=== PATIENT | female | born 1965 | race Caucasian/White ===

== ENCOUNTER 2018-01-03 18:12 | Inpatient (IN) | payer OTHER ==
[~2018-01-03] VITALS: Ht 154.9 cm; Wt 65.1 kg
[2018-01-03] MEDS ORDERED: MORPHINE SULFATE 4 MG/1 ML DISP.SYRIN ONE ×3 (18:30→20:58)
[2018-01-03] MEDS ORDERED: MORPHINE SULFATE 2 MG/1 ML DISP.SYRIN IM ONE (18:30)
[2018-01-03] MEDS ORDERED: ROCURONIUM BROMIDE 50 MG/5 ML VIAL IV ONE (19:00)
[2018-01-03] MEDS ORDERED: ONDANSETRON ODT 4 MG TAB.RAPDIS ONE (19:13)
[2018-01-03] MEDS ORDERED: ONDANSETRON ODT 4 MG TAB.RAPDIS SL ONE (19:15)
[2018-01-03] MEDS ORDERED: MORPHINE SULFATE 4 MG/1 ML DISP.SYRIN IM ONE ×2 (19:15→20:30)
[2018-01-03 20:28] LABS: BASOPHILS % (AUTO) 0.5 % (0.0-2.0); EOSINOPHILS # (AUTO) 0.2 K/uL (0.0-0.7); EOSINOPHILS % (AUTO) 2.5 % (0.0-7.0); HEMATOCRIT 35.7 % (31.2-41.9); HEMOGLOBIN 11.6 g/dL (10.9-14.3); LYMPHOCYTES # (AUTO) 1.7 K/uL (20.0-40.0); LYMPHOCYTES % (AUTO) 17.5 % (20.5-51.5); MEAN CORPUSCULAR HEMOGLOBIN 27.4 uug (24.7-32.8); MEAN CORPUSCULAR HGB CONC 33 g/dL (32.3-35.6); MEAN CORPUSCULAR VOLUME 84.1 fL (75.5-95.3); MONOCYTES # (AUTO) 0.8 K/uL (2.0-10.0); MONOCYTES % (AUTO) 8.3 % (0.0-11.0); NEUTROPHILS # (AUTO) 7.1 K/uL (1.8-8.9); NEUTROPHILS % (AUTO) 71.2 % (38.5-71.5); PLATELET COUNT (AUTO) 270 K/uL (179-408); RED BLOOD CELL COUNT(AUTO) 4.25 MIL/uL (3.63-4.92); WHITE BLOOD COUNT (AUTO) 9.9 K/uL (3.8-11.8)
[2018-01-03 20:36] LABS: CREATININE 0.7 mg/dL (0.6-1.3); POTASSIUM 4.6 mmol/L (3.5-5.1)
[2018-01-03 20:42] LABS: BILIRUBIN,DIRECT 0.1 mg/dL (0.0-0.2); BILIRUBIN,TOTAL 0.3 mg/dL (0.2-1.0); TOTAL PROTEIN, SERUM 6.7 g/dL (6.4-8.2)
[2018-01-03] MEDS ORDERED: SWABABLE VALVE TRANSFER SET EA MC ONE (20:57)
[2018-01-03] MEDS ORDERED: IV NORMAL SALINE 100 ML ONE (20:57)
[2018-01-03] MEDS ORDERED: NORMAL SALINE FLUSH 10 ML DISP.SYRIN ONE (20:57)
[2018-01-03] MEDS ORDERED: IOHEXOL 300MG/ML 100 ML INFUS..BTL ONE (20:57)
[2018-01-03] MEDS ORDERED: ONDANSETRON 4 MG/2 ML VIAL ONE ×2 (21:03→23:01)
[2018-01-04] MEDS ORDERED: ACETAMINOPHEN 325 MG TABLET PO PRN
[2018-01-04] MEDS ORDERED: Z GUARD REMEDY PASTE 57 GM TUBE TOP PRN
[2018-01-04] MEDS ORDERED: MAGNESIUM HYDROXIDE 30 ML LIQUID UDC PO PRN
[2018-01-04] MEDS ORDERED: DIATR MEGLU/DIATRIZOATE SODIUM 120 ML BOTTLE ONE (00:11)
[2018-01-04] MEDS ORDERED: MORPHINE SULFATE 4 MG/1 ML DISP.SYRIN IV ONE (00:15)
[2018-01-04] MEDS ORDERED: ONDANSETRON 4 MG/2 ML VIAL IV ONE (00:15)
[2018-01-04] MEDS ORDERED: MORPHINE SULFATE 4 MG/1 ML DISP.SYRIN ONE (00:24)
[2018-01-04] MEDS ORDERED: MISCELLANEOUS MED XX PRN (00:45)
[2018-01-04] MEDS ORDERED: ONDANSETRON 4 MG/2 ML VIAL IV PRN ×2 (00:45)
[2018-01-04 01:03] VITALS: BP 147/98
[2018-01-04] MEDS: MORPHINE SULFATE 2 MG/1 ML DISP.SYRIN IV PRN ×6 (05:12→23:49)
[2018-01-04 05:18] VITALS: BP 124/79
[2018-01-04 08:14] LABS: BASOPHILS % (AUTO) 0.4 % (0.0-2.0); EOSINOPHILS % (AUTO) 0.6 % (0.0-7.0); HEMATOCRIT 34.1 % (31.2-41.9); HEMOGLOBIN 11.4 g/dL (10.9-14.3); LYMPHOCYTES # (AUTO) 1.2 K/uL (20.0-40.0); LYMPHOCYTES % (AUTO) 17.4 % (20.5-51.5); MEAN CORPUSCULAR HEMOGLOBIN 28.1 uug (24.7-32.8); MEAN CORPUSCULAR HGB CONC 34 g/dL (32.3-35.6); MONOCYTES # (AUTO) 0.5 K/uL (2.0-10.0); MONOCYTES % (AUTO) 7.7 % (0.0-11.0); NEUTROPHILS % (AUTO) 73.9 % (38.5-71.5); PLATELET COUNT (AUTO) 270 K/uL (179-408); RED BLOOD CELL COUNT(AUTO) 4.06 MIL/uL (3.63-4.92); WHITE BLOOD COUNT (AUTO) 6.8 K/uL (3.8-11.8)
[2018-01-04 08:25] LABS: CREATININE 0.6 mg/dL (0.6-1.3); MAGNESIUM 1.9 mg/dL (1.8-2.4); PHOSPHOROUS 4.6 mg/dL (2.5-4.9); POTASSIUM 4.1 mmol/L (3.5-5.1)
[2018-01-04] MEDS ORDERED: PANT40TA2 PO (09:16)
[2018-01-04] MEDS ORDERED: ERGO500014 PO (09:18)
[2018-01-04] MEDS ORDERED: [UNRECOGNIZED DRUG - OTHER] TOP (09:18)
[2018-01-04 11:30] VITALS: BP 124/80
[2018-01-04] MEDS: PANTOPRAZOLE SODIUM 40 MG TABLET.DR PO SCH ×2 (12:00→17:11)
[2018-01-04] MEDS ORDERED: ALPR0.255 PO (12:41)
[2018-01-04] MEDS ORDERED: CETI10CA PO (12:42)
[2018-01-04] MEDS: ONDANSETRON 4 MG/2 ML VIAL IV PRN ×3 (13:12→21:32)
[2018-01-04 15:47] VITALS: BP 139/90
[2018-01-04 19:33] VITALS: BP 159/86
[2018-01-04] MEDS: HYDROCODONE/APAP 5-325MG TABLET PO PRN (20:14)
[2018-01-04 21:00] VITALS: BP 135/91
[2018-01-05] MEDS ORDERED: ALPRAZOLAM 0.25 MG TABLET PO ONE (01:15)
[2018-01-05 03:40] VITALS: BP 146/83
[2018-01-05] MEDS: MORPHINE SULFATE 2 MG/1 ML DISP.SYRIN IV PRN ×3 (03:52→09:25)
[2018-01-05] MEDS: ONDANSETRON 4 MG/2 ML VIAL IV PRN ×3 (05:42→13:15)
[2018-01-05] MEDS: PANTOPRAZOLE SODIUM 40 MG TABLET.DR PO SCH (06:05)
[2018-01-05 06:42] LABS: BASOPHILS % (AUTO) 0.9 % (0.0-2.0); EOSINOPHILS # (AUTO) 0.5 K/uL (0.0-0.7); EOSINOPHILS % (AUTO) 8.9 % (0.0-7.0); HEMATOCRIT 35.4 % (31.2-41.9); HEMOGLOBIN 11.6 g/dL (10.9-14.3); LYMPHOCYTES # (AUTO) 1.5 K/uL (20.0-40.0); LYMPHOCYTES % (AUTO) 26.7 % (20.5-51.5); MEAN CORPUSCULAR HEMOGLOBIN 27.6 uug (24.7-32.8); MEAN CORPUSCULAR HGB CONC 33 g/dL (32.3-35.6); MEAN CORPUSCULAR VOLUME 83.8 fL (75.5-95.3); MONOCYTES # (AUTO) 0.7 K/uL (2.0-10.0); MONOCYTES % (AUTO) 12.9 % (0.0-11.0); NEUTROPHILS # (AUTO) 2.8 K/uL (1.8-8.9); NEUTROPHILS % (AUTO) 50.6 % (38.5-71.5); PLATELET COUNT (AUTO) 270 K/uL (179-408); RED BLOOD CELL COUNT(AUTO) 4.22 MIL/uL (3.63-4.92); WHITE BLOOD COUNT (AUTO) 5.6 K/uL (3.8-11.8)
[2018-01-05 06:52] LABS: CREATININE 0.6 mg/dL (0.6-1.3); MAGNESIUM 1.9 mg/dL (1.8-2.4); PHOSPHOROUS 3.7 mg/dL (2.5-4.9); POTASSIUM 3.6 mmol/L (3.5-5.1)
[2018-01-05] MEDS ORDERED: ERGOCALCIFEROL 50,000 UNIT CAPSULE PO SCH (09:00)
[2018-01-05] MEDS ORDERED: BISACODYL 10 MG SUPP.RECT RC PRN (11:15)
[2018-01-05] MEDS ORDERED: MORPHINE SULFATE 2 MG/1 ML DISP.SYRIN IV PRN (11:15)
[2018-01-05] MEDS ORDERED: BISACODYL 10 MG SUPP.RECT RC ONE (11:15)
[2018-01-05] MEDS ORDERED: DOCUSATE SODIUM 100 MG/10 ML LIQUID UDC PO SCH (11:15)
[2018-01-05] MEDS ORDERED: MORPHINE SULFATE 4 MG/1 ML DISP.SYRIN IV PRN (11:45)
[2018-01-05 11:52] VITALS: BP 154/91
[2018-01-05] MEDS ORDERED: IV D5W-0.45% NS +20 KCL 1,000 ML IV PRN (13:00)
[2018-01-05] MEDS ORDERED: DOCU50LI PO (13:34)
[2018-01-05] MEDS ORDERED: ONDA4VIA30 IV (13:34)
[2018-01-05] MEDS ORDERED: PANT40TA2 PO (13:34)
[2018-01-05] MEDS ORDERED: MENT71OI TOP (13:34)
[2018-01-05] MEDS ORDERED: HYDR-3326 PO (13:34)
[2018-01-05] MEDS ORDERED: ACET325T53 PO (13:34)
[2018-01-05] MEDS ORDERED: Morphine Sulfate Inj IV (13:34)
[2018-01-05] MEDS ORDERED: MAGN400O6 PO (13:34)
[2018-01-05] MEDS ORDERED: Ergocalciferol PO (13:34)
[2018-01-05] MEDS ORDERED: BISA10SU12 RC (13:34)
[2018-01-05] MEDS: HYDROCODONE/APAP 5-325MG TABLET PO PRN (15:56)
[2018-01-05] MEDS ORDERED: MAGNESIUM HYDROXIDE 30 ML LIQUID UDC PO SCH (21:00)
[2018-01-06] MEDS ORDERED: ERGOCALCIFEROL 50,000 UNIT CAPSULE PO SCH (09:00)
== END 2018-01-05 16:00 | disposition short-term general hospital (02) | DRG 342 ==
LOC: ER 18:14 → MED 23:00
PROVIDERS: ADMIT Internal Medicine; ATTEND Internal Medicine
PROC: 2W3QX1Z Immobilization of Right Lower Leg using Splint (ICD-10-PCS; principal; 2018-01-04)
DX: S82.64XA Nondisplaced fracture of lateral malleolus of right fibula, initial encounter for closed fracture (principal); S36.429A Contusion of unspecified part of small intestine, initial encounter; I10 Essential (primary) hypertension; S00.10XA Contusion of unspecified eyelid and periocular area, initial encounter; V49.40XA Driver injured in collision with unspecified motor vehicles in traffic accident, initial encounter; W22.10XA Striking against or struck by unspecified automobile airbag, initial encounter; Y92.414 Local residential or business street as the place of occurrence of the external cause; S82.091A Other fracture of right patella, initial encounter for closed fracture; K40.20 Bilateral inguinal hernia, without obstruction or gangrene, not specified as recurrent; Z98.84 Bariatric surgery status; K42.9 Umbilical hernia without obstruction or gangrene; Z90.49 Acquired absence of other specified parts of digestive tract; F41.9 Anxiety disorder, unspecified
CPT/HCPCS: 36415; 71045; 72170; 73610; 73630; 74160; 83690; 83735; 84100; 85025; 93005; A4663; J2270; J2405; J3490; Q0162; Q9963; Q9967